=== PATIENT | female | born 1975 | race Two or more races ===

== ENCOUNTER 2020-02-20 21:44 | Emergency (ER) | payer MEDICAID ==
[~2020-02-20] VITALS: Ht 170.2 cm; Wt 64.9 kg
[2020-02-20] MEDS ORDERED: ACETAMINOPHEN 650 mg PER 20 mL UD PO ONE (22:00)
[2020-02-20] MEDS ORDERED: SODIUM CHLORIDE 0.9% 1,000 ML IV ONE (22:40)
[2020-02-20] MEDS ORDERED: KETOROLAC TROMETH 30 MG/ML 1ML VIAL IV ONE (22:45)
[2020-02-20] MEDS ORDERED: LORazepam 2MG/ML-1ML VIAL IV ONE (22:45)
[2020-02-20] MEDS ORDERED: cloNIDine HCL 0.1 MG TAB PO ONE (22:45)
[2020-02-20 23:16] LABS: Basophils # (auto) 0 10 ^3/uL (0-0.2); Basophils % (auto) 0.2 % (0.0-2.0); Eosinophils # (auto) 0.1 10 ^3/uL (0-0.8); Eosinophils % (auto) 0.8 % (0.0-7.0); Hematocrit 29.3 % (36.0-46.0); Lymphocytes # (auto) 0.6 10 ^3/uL (0.4-5.4); Lymphocytes % (auto) 7.5 % (10.0-50.0); Mean Corpuscular Hemoglobin 21.9 pg (28.0-32.0); Mean Corpuscular Hgb Conc. 30.7 g/dL (32.0-36.0); Mean Corpuscular Volume 71.3 fL (80.0-100.0); Monocytes # (auto) 0.4 10 ^3/uL (0-1.3); Monocytes % (auto) 5.1 % (0.0-12.0); Neutrophils # (auto) 6.9 10 ^3/uL (1.6-8.6); Neutrophils % (auto) 86.4 % (37.0-80.0); Platelet Count (auto) 298 10^3/uL (140-450); Red Blood Cells 4.11 10^6/uL (4.0-5.20); Red Cell Distribution Width 18.4 % (11.8-14.3)
[2020-02-20 23:36] LABS: Albumin 3.4 g/dL (3.4-5.0); Anion Gap 7 (5-15); Blood Urea Nitrogen 7 mg/dL (7-18); Calcium 8.3 mg/dL (8.5-10.1); Carbon Dioxide 21 mmol/L (21-32); Chloride 109 mmol/L (98-107); Glucose 134 mg/dL (74-106); Magnesium 1.9 mg/dL (1.6-2.6); Potassium 3.3 mmol/L (3.5-5.1); Sodium 137 mmol/L (136-145)
[2020-02-20 23:38] LABS: BUN/Creatinine Ratio 9.7; GFR African American 114 mL/min; GFR Non-African American 94 mL/min
[2020-02-20 23:43] LABS: Alanine Aminotransferase 68 U/L (13-56); Alkaline Phosphatase 111 U/L (45-117); Aspartate Aminotransferase 82 U/L (15-37); Bilirubin, Total 0.4 mg/dL (0.2-1.0); Total Protein 7.3 g/dL (6.4-8.2)
[2020-02-21 01:04] LABS: Urine Bacteria FEW /hpf (None Seen); Urine Blood TRACE /uL (Negative); Urine Specific Gravity 1.005 (1.001-1.035); Urine WBC 35 /hpf (0 - 5)
[2020-02-21] MEDS ORDERED: POTASSIUM EFFERVESENT TAB 25 MEQ PO ONE (02:45)
[2020-02-21 04:10] VITALS: BP 97/66
== END 2020-02-21 03:01 | disposition home or self-care (01) ==
LOC: ER 21:47
DX: F11.23 Opioid dependence with withdrawal (principal); G43.909 Migraine, unspecified, not intractable, without status migrainosus
CPT/HCPCS: 36415; 71045; 80053; 81001; 81025; 83735; 84484; 85025; 96374; 96375; 99285; J1885; J2060; 93005

== ENCOUNTER 2021-12-16 08:34 | Emergency (ER) | payer MEDICAID ==
[~2021-12-16] VITALS: Ht 170.2 cm; Wt 68.0 kg
[2021-12-16] MEDS ORDERED: CYCL-837 PO (10:54)
[2021-12-16] MEDS ORDERED: HYDROcodone-ACET 10/325MG TAB PO ONE (11:00)
[2021-12-16] MEDS ORDERED: ONDANSETRON ODT 4 MG TAB PO ONE (11:00)
[2021-12-16 11:09] VITALS: BP 106/65
== END 2021-12-16 11:19 | disposition home or self-care (01) ==
LOC: ER 08:34
DX: S42.255A Nondisplaced fracture of greater tuberosity of left humerus, initial encounter for closed fracture (principal); S16.1XXA Strain of muscle, fascia and tendon at neck level, initial encounter; S20.212A Contusion of left front wall of thorax, initial encounter; V86.59XA Driver of other special all-terrain or other off-road motor vehicle injured in nontraffic accident, initial encounter; Y93.89 Activity, other specified; Y92.488 Other paved roadways as the place of occurrence of the external cause; Y99.8 Other external cause status
CPT/HCPCS: 70450; 71101; 71250; 72040; 72125; 73030; 99284; Q0162